=== PATIENT | male | born 1990 | race Hispanic/Latino ===

== ENCOUNTER → 2016-07-08 | Outpatient (CLI) | payer OTHER ==
--- NOTE | 2016-07-10 15:26 | SLEEPCENT ---
DATE OF PROCEDURE: 07/08/2016 REFERRING PROVIDER: Ms. Adela Talbert PA-C INTERPRETATION: Nocturnal polysomnography was performed for the evaluation of sleep apnea syndrome symptoms consisting of excessive daytime sleepiness, insomnia, snoring, observed apnea, gasping respirations, morning headaches, and nonrestorative sleep. He also had the comorbidity of pulmonary hypertension. A total of 8 hours and 20 minutes of data was reviewed with 434 minutes of sleep identified. Sleep latency was 47.5 minutes. Rapid eye movement (REM) latency was 135 minutes. No slow wave sleep was identified. Sleep efficiency was 87.8%. Electrocardiogram (EKG) showed normal sinus rhythm with an average heart rate of 60 beats per minute. Speeding and slowing was noted surrounding some respiratory events. No epileptiform discharge observed. There were 17 respiratory events identified of 10 seconds in duration or longer for an apnea-hypopnea index (AHI) of 2.4. The events were obstructive, central, and mixed in origin. Respiratory effort-related arousal (RERA) index was 3.9 giving a total respiratory disturbance index (RDI) of 6.3. Mean oxygen saturation for the study was 94% with a minimum recorded value of 91%. Arousal index was 14.7 with the majority of arousals related to limb movements. Periodic limb movement index of 3.1. The study is limited in that this was done exclusively with him sleeping on his side. IMPRESSION: 1. Obstructive sleep apnea, mild, determined by RDI. The study was limited in that sleep was only observed on his side. RECOMMENDATION: Recommend returning to clinic to discuss the above results, particularly as the RDI index is predominantly composed of RERA and there are central and mixed events present.
== END ==
LOC: M SLEEP 19:34
PROVIDERS: ATTEND Internal Medicine Pulmonary Disease
DX: G47.33 Obstructive sleep apnea (adult) (pediatric) (principal)

== ENCOUNTER → 2016-08-04 | Outpatient (CLI) | payer OTHER | LOC: M SLEEP 19:44 | PROVIDERS: ATTEND Internal Medicine Pulmonary Disease | DX: G47.33 Obstructive sleep apnea (adult) (pediatric) (principal) ==